=== PATIENT | female | born 1985 | race African-American/Black ===

== ENCOUNTER 2020-02-23 15:49 | Emergency (ER) | payer OTHER ==
[~2020-02-23] VITALS: Ht 160 cm; Wt 61.2 kg
[2020-02-23] MEDS ORDERED: ARMOUR THYROID30 M1 PO (16:12)
[2020-02-23 16:36] LABS: ABSOLUTE BASOPHILS 0.1 thou/uL (0.0-0.2); ABSOLUTE EOSINOPHILS 0.1 thou/uL (0.0-0.7); ABSOLUTE LYMPHOCYTES 1.2 thou/uL (0.8-5.3); ABSOLUTE MONOCYTES 0.4 thou/uL (0.0-1.2); ABSOLUTE NEUTROPHILS 9.1 thou/uL (1.6-8.1); BASOPHILS 0.5 %; EOSINOPHILS 0.5 %; HEMATOCRIT 40.5 % (37.0-47.0); HEMOGLOBIN 13.6 gm/dL (12.0-15.0); LYMPHOCYTES 11.2 %; MCH 27.7 pg (26.0-34.0); MCHC 33.6 g/dL (28.0-37.0); MCV 82.4 fL (80.0-100.0); MONOCYTES 3.7 %; MPV 9.6 fl. (7.2-11.1); NUCLEATED RBCS 0 /100WBC; PLATELET COUNT* 216 thou/uL (150-400); POLYS 84.1 %; RBC 4.91 mil/uL (4.20-5.00); RDW-CV 13.9 % (10.5-14.5); WBC 10.8 thou/uL (4.0-11.0)
[2020-02-23 16:36] LABS: URINE BILIRUBIN NEGATIVE (Negative); URINE BLOOD NEGATIVE (Negative); URINE CLARITY CLEAR; URINE COLOR YELLOW; URINE GLUCOSE-RANDOM NEGATIVE (Negative); URINE KETONES NEGATIVE (Negative); URINE LEUKOCYTES-REFLEX NEGATIVE (Negative); URINE NITRITE-REFLEX NEGATIVE (Negative); URINE PROTEIN NEGATIVE (Negative); URINE SPECIFIC GRAVITY 1.025 (1.005-1.030)
[2020-02-23 16:46] LABS: CALCIUM 8.2 mg/dL (8.5-10.1); CREATININE 0.8 mg/dL (0.6-1.3); POTASSIUM 3.9 mmol/L (3.5-5.1)
[2020-02-23 16:50] LABS: TOTAL BILIRUBIN 0.7 mg/dL (<0.1-1.0); TOTAL PROTEIN 6.7 g/dL (6.4-8.2)
[2020-02-23] MEDS ORDERED: NAPROSYN500 MG PO (19:38)
[2020-02-23] MEDS ORDERED: NORCO 5-325 TA1 EAC2 PO (19:38)
[2020-02-23 20:17] VITALS: BP 112/58
== END 2020-02-23 20:19 | disposition home or self-care (01) ==
LOC: M.ERS 15:49
PROVIDERS: Physician Assistant
DX: R10.11 Right upper quadrant pain (principal); R11.2 Nausea with vomiting, unspecified